=== PATIENT | male | born 1955 | race Caucasian/White ===

== ENCOUNTER → 2016-09-22 | Outpatient (CLI) | payer MEDICARE, OTHER ==
[~2016-09-22] MED LIST: ASPIR 8181 MG PO; BRILINTA 90 MG90 MG GT; COREG 3.125M3.125 MG PO; FOLIC ACID 1 MG1 MG PO; FOLIC ACID1 MG PO; LIPITOR TAB 2020 MG PO; LISINOPRIL5 MG PO; NITROSTAT0.4 MG SL; PLAVIX 75 MG TA75 MG PO; TRAMADOL HCL50 MG PO
[2016-09-22 08:53] LABS: BUN/CREATININE RATIO 15 (0-10)
== END ==
LOC: LAB 07:29
PROVIDERS: Internal Medicine Cardiovascular Disease
DX: I25.10 Atherosclerotic heart disease of native coronary artery without angina pectoris (principal)
CPT/HCPCS: 36415; 80053; 80061

== ENCOUNTER 2016-10-26 16:43 | Emergency (ER) | payer MEDICARE, OTHER ==
[~2016-10-26 16:43] MED LIST changes: -ASPIR 8181 MG PO; -BRILINTA 90 MG90 MG GT; -COREG 3.125M3.125 MG PO; -FOLIC ACID1 MG PO; -LIPITOR TAB 2020 MG PO; -LISINOPRIL5 MG PO; -NITROSTAT0.4 MG SL; -PLAVIX 75 MG TA75 MG PO; -TRAMADOL HCL50 MG PO
[2016-10-26 21:10] LABS: HEMOGLOBIN 16.4 gm/dl (14.0-17.5); RED BLOOD COUNT 4.75 M/UL (4.20-5.50); WHITE BLOOD COUNT 12.5 K/UL (4.5-11.0)
[2016-10-26 21:29] LABS: BUN/CREATININE RATIO 16 (0-10)
[2017-02-08] MEDS ORDERED: ASPIR 8181 MG PO (07:08)
[2017-02-08] MEDS ORDERED: LIPITOR TAB 2020 MG PO (07:09)
[2017-02-08] MEDS ORDERED: FOLIC ACID1 MG PO (07:10)
[2017-02-08] MEDS ORDERED: COREG 3.125M3.125 MG PO (07:10)
[2017-02-08] MEDS ORDERED: LISINOPRIL5 MG PO (07:11)
[2017-02-08] MEDS ORDERED: NITROSTAT0.4 MG SL (07:12)
[2017-02-08] MEDS ORDERED: TRAMADOL HCL50 MG PO (07:12)
[2017-02-09] MEDS ORDERED: BRILINTA 90 MG90 MG GT (09:48)
[2017-02-09] MEDS ORDERED: PLAVIX 75 MG TA75 MG PO (09:49)
== END 2016-10-26 23:56 | disposition home or self-care (01) ==
LOC: ER1 16:43
PROVIDERS: Student in an Organized Health Care Education/Training Program
DX: S05.01XA Injury of conjunctiva and corneal abrasion without foreign body, right eye, initial encounter (principal); I25.10 Atherosclerotic heart disease of native coronary artery without angina pectoris; I10 Essential (primary) hypertension; F17.210 Nicotine dependence, cigarettes, uncomplicated; Z79.891 Long term (current) use of opiate analgesic; Z79.899 Other long term (current) drug therapy; Z95.5 Presence of coronary angioplasty implant and graft; X58.XXXA Exposure to other specified factors, initial encounter
CPT/HCPCS: 36415; 70450; 71010; 80053; 81001; 84484; 85025; 87086; 93005; 99284

== ENCOUNTER → 2016-11-13 | Outpatient (CLI) | payer OTHER ==
[~2016-11-13] MED LIST changes: +ASPIR 8181 MG PO; +BRILINTA 90 MG90 MG GT; +COREG 3.125M3.125 MG PO; +FOLIC ACID1 MG PO; +LIPITOR TAB 2020 MG PO; +LISINOPRIL5 MG PO; +NITROSTAT0.4 MG SL; +PLAVIX 75 MG TA75 MG PO; +TRAMADOL HCL50 MG PO
== END ==
LOC: HEART 5 08:00
DX: I25.10 Atherosclerotic heart disease of native coronary artery without angina pectoris (principal); R94.39 Abnormal result of other cardiovascular function study
CPT/HCPCS: 78452; A9502; J2785